=== PATIENT | female | born 1950 | race Caucasian/White ===

== ENCOUNTER → 2018-07-13 | Outpatient (CLI) | payer OTHER, MEDICARE | LOC: FIMAGING 12:55 | PROVIDERS: ATTEND Orthopaedic Surgery | DX: Z01.818 Encounter for other preprocedural examination (principal); M17.12 Unilateral primary osteoarthritis, left knee; M25.462 Effusion, left knee ==

== ENCOUNTER 2018-08-11 07:15 | Inpatient (IN) | payer OTHER, MEDICARE ==
[2018-08-18] MEDS ORDERED: TRANEXAMIC ACID 3,000 MG in NS (SYRINGE) 50 ML IRR ONE (06:00)
[2018-08-18] MEDS ORDERED: ROPIVACAINE 0.2% 80 MG, EPINEPHrine 0.2 MG, KETOROLAC TROMETHAMINE 30 MG in SYRINGE 0 ML IU ONE (06:00)
--- NOTE | 2018-08-18 07:05 | PDHPUP ---
History & Physical Update H&P update statement: This history and physical update is based on an assessment of the patient which was completed after admission or registration (within 24 hours), but prior to the surgery/procedure. H&P update: H&P reviewed & patient examined, no change in patient's condition since H&P completed
[2018-08-18] MEDS ORDERED: TRANEXAMIC ACID 3,000 MG/50 ML BAG IRR ONE (07:38)
[2018-08-18] MEDS ORDERED: VANCOMYCIN 1 GM VIAL ONE (08:43)
[2018-08-18] MEDS ORDERED: ACETAMINOPHEN 325 MG TAB PO ONE (09:13)
[2018-08-18] MEDS ORDERED: FAMOTIDINE 20 MG TAB PO ONE (09:13)
[2018-08-18] MEDS ORDERED: DEXAMETHASONE 4 MG/ML VIAL IVP ONE (09:13)
[2018-08-18] MEDS ORDERED: ceFAZolin 2 GM/DEXTROSE 100 ML IV ONE (09:13)
[2018-08-18] MEDS ORDERED: LR 1,000 ML IV ONE (09:14)
[2018-08-18] MEDS ORDERED: MIDAZOLAM 2 MG/2 ML VIAL ONE (09:51)
[2018-08-18] MEDS ORDERED: BUPIVACAINE 0.25% 30 ML SDV ONE (09:52)
[2018-08-18] MEDS ORDERED: PROPOFOL/EMULSION 500 MG/50 ML BOTTLE IV ONE ×2 (09:53→10:45)
[2018-08-18] MEDS ORDERED: LIDOCAINE 2% 5 ML SDV ONE (09:54)
[2018-08-18] MEDS ORDERED: MIDAZOLAM 2 MG/2 ML VIAL IVP ONE (10:08)
[2018-08-18] MEDS ORDERED: fentaNYL 100 MCG/2 ML INJ IVP PRN (10:09)
[2018-08-18] MEDS ORDERED: ONDANSETRON 4 MG/2 ML VIAL IVP PRN ×2 (10:09→10:44)
[2018-08-18] MEDS ORDERED: oxyCODONE IR 5 MG TAB PO PRN (10:09)
[2018-08-18] MEDS ORDERED: ACETAMINOPHEN 500 MG TAB PO PRN (10:09)
[2018-08-18] MEDS ORDERED: HYDROmorphONE/DILAUDID 2 MG/ML INJ IVP PRN (10:09)
[2018-08-18] MEDS ORDERED: NALOXONE HCL 0.4 MG/ML INJ IVP PRN (10:09)
[2018-08-18] MEDS ORDERED: LR 500 ML IV PRN (10:09)
[2018-08-18] MEDS ORDERED: DEXAMETHASONE 4 MG/ML VIAL IVP PRN (10:09)
--- NOTE | 2018-08-18 10:10 | PDANEPAE ---
ANE History of Present Illness Left Knee TKA ANE Past Medical History - Cardiovascular History Hx Hypertension: Yes Hx Arrhythmias: Yes Hx Chest Pain: No Hx Coronary Artery / Peripheral Vascular Disease: No Hx CHF / Valvular Disease: Yes Hx Palpitations: No Cardiovascular History Comment: PSVT. ? LEAKY MITRAL VALVE - Pulmonary History Hx COPD: No Hx Asthma/Reactive Airway Disease: No Hx Recent Upper Respiratory Infection: No Hx Oxygen in Use at Home: No Hx Sleep Apnea: Yes Sleep Apnea Screening Result - Last Documented: Positive Pulmonary History Comment: MAYNOR uses CPAP - Neurologic History Hx Cerebrovascular Accident: No Hx Seizures: No Hx Dementia: No - Endocrine History Hx Diabetes: No - Renal History Hx Renal Disorders: No - Liver History Hx Hepatic Disorders: No - Neurological & Psychiatric Hx Hx Neurological and Psychiatric Disorders: Yes Neurological / Psychiatric History Comment: depression/anxiety - Cancer History Hx Cancer: No - Congenital Disorder History Hx Congenital Disorders: No - GI History Hx Gastrointestinal Disorders: Yes Gastrointestinal History Comment: intermittent gerd - Other Health History Other Health History: 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 colonoscopies 2 yrs ANE Review of Systems Review of Systems: - Exercise capacity METS (RN): 4 METS ANE Patient History - Allergies Allergies/Adverse Reactions: bacitracin Allergy (Verified 07/12/18 14:17) Rash neomycin [From Neosporin ([id number])] Allergy (Verified 07/12/18 14:17) Rash polymyxin B [From Neosporin ([id number])] Allergy (Verified 07/12/18 14:17) Rash Sulfa (Sulfonamide Antibiotics) Allergy (Verified 07/12/18 14:17) Vomiting sulfamethoxazole [From Bactrim] Allergy (Verified 07/12/18 14:17) Vomiting trimethoprim [From Bactrim] Allergy (Verified 07/12/18 14:17) Vomiting - Home Medications Home Medications: Aspirin [Aspirin 81mg (*)] 81 mg PO DAILY 07/12/18 [Last Taken 3 Weeks Ago ~] Citalopram [CeleXA 20 MG] 20 mg PO DAILY 07/12/18 [Last Taken 08/18/18] Fluticasone Propionate [Aller-Korey] 1 spray NS DAILY 07/12/18 [Last Taken ] Herbals/Supplements -Info Only 1 ea PO DAILY 07/12/18 [Last Taken 3 Weeks Ago ~ 07/28/18] Levothyroxine [Synthroid 50 mcg (*)] 50 mcg PO DAILY06 07/12/18 [Last Taken ] Olmesartan Medoxomil 40 mg PO DAILY 07/12/18 [Last Taken 08/18/18] Spironolactone [Aldactone 25 MG (*)] 25 mg PO DAILY 07/12/18 [Last Taken ] - NPO status NPO Since - Liquids (Date): 08/18/18 NPO Since - Liquids (Time): 07:30 NPO Since - Solids (Date): 08/17/18 NPO Since - Solids (Time): 19:00 - Smoking Hx Smoking Status: Former smoker - Family Anes Hx Family Hx Anesthesia Complications: none ANE Labs/Vital Signs - Vital Signs Blood Pressure: 145/82 Heart Rate: 58 Respiratory Rate: 16 O2 Sat (%): 96 Height: 165.1 cm Weight: 95.254 kg ANE Physical Exam - Airway Neck exam: FROM Mallampati Score: Class 2 - Pulmonary Pulmonary: clear to auscultation - Cardiovascular Cardiovascular: regular rate and rhythym - ASA Status ASA Status: II ANE Anesthesia Plan Anesthesia Plan: spinal Regional Anesthesia: adductor canal FNB
[2018-08-18] MEDS ORDERED: ROPIVACAINE HCL 100 MG/20 ML INJ ONE (10:18)
[2018-08-18] MEDS ORDERED: fentaNYL 100 MCG/2 ML INJ ONE (10:19)
[2018-08-18] MEDS ORDERED: diphenhydrAMINE 25 MG CAP PO PRN (10:44)
[2018-08-18] MEDS ORDERED: POLYETHYLENE GLYCOL 3350 17 GM PKT PO PRN (10:44)
[2018-08-18] MEDS ORDERED: PROMETHAZINE HCL 25 MG SUPPR PR PRN (10:44)
[2018-08-18] MEDS ORDERED: TEMAZEPAM 15 MG CAP PO PRN (10:44)
[2018-08-18] MEDS ORDERED: MAGNESIUM HYDROXIDE 30 ML UDCUP PO PRN (10:44)
[2018-08-18] MEDS ORDERED: BISACODYL 10 MG SUPP PR PRN (10:44)
[2018-08-18] MEDS ORDERED: ONDANSETRON DISINTEGRATING 4 MG TAB PO PRN (10:44)
[2018-08-18] MEDS ORDERED: LACTULOSE 20 GM/30 ML UDCUP PO PRN (10:44)
[2018-08-18] MEDS ORDERED: METOCLOPRAMIDE 10 MG/2 ML VIAL IVP PRN (10:44)
[2018-08-18] MEDS ORDERED: DIPHENOXYLATE/ATROPINE LOMOTIL 1 TAB PO PRN (10:44)
[2018-08-18] MEDS ORDERED: CYCLOBENZAPRINE 10 MG TAB PO PRN (10:44)
[2018-08-18] MEDS ORDERED: PROMETHAZINE HCL 25 MG/ML INJ IVP PRN (10:44)
[2018-08-18] MEDS ORDERED: LR 1,000 ML IV SCH (11:00)
[2018-08-18] MEDS ORDERED: ePHEDrine SULFATE 25 MG/5 ML SYR ONE (11:03)
[2018-08-18] MEDS: oxyCODONE IR 5 MG TAB PO PRN ×3 (15:15→23:30)
[2018-08-18] MEDS ORDERED: oxyCODONE IR 5 MG TAB ONE (15:20)
[2018-08-18] MEDS: ACETAMINOPHEN 325 MG TAB PO SCH ×2 (15:30→23:30)
[2018-08-18] MEDS ORDERED: ACETAMINOPHEN 325 MG TAB ONE (16:08)
[2018-08-18] MEDS: ceFAZolin 2 GM/DEXTROSE 100 ML IV SCH (18:00)
[2018-08-18] MEDS: FAMOTIDINE 20 MG TAB PO SCH (20:52)
[2018-08-18] MEDS: SENNOSIDES/DOCUSATE SODIUM TAB PO SCH (20:52)
[2018-08-18] MEDS: ASPIRIN 81 MG CHEWABLE TAB PO SCH (20:52)
--- NOTE | 2018-08-18 20:55 | POSTANESTH ---
Post Anesthetic Evaluation Cardiovascular Status: Normal, Stable Respiratory Status: Normal, Stable Level of Consciousness/Mental Status: Can Participate in Eval, Alert and Oriented Pain Control: Adequate, Prn Tx Ordered Nausea/Vomiting Control: Adequate, Prn Tx Ordered Complications Possibly Related to Anesthesia: None Noted
--- NOTE | 2018-08-18 21:42 | PDMN ---
Medical Necessity Medical necessity: Pt meets IP criteria per PA; est los >2 mn s/p L TKA (cpt 82456); recommend IP due to hx of multiple allergies, concern for pain medication tolerance & pain management; per order 08/18/18
[2018-08-19] MEDS: ceFAZolin 2 GM/DEXTROSE 100 ML IV SCH (01:42)
[2018-08-19] MEDS: ACETAMINOPHEN 325 MG TAB PO SCH (04:36)
[2018-08-19] MEDS ORDERED: LEVOTHYROXINE 50 MCG TAB PO SCH (06:00)
[2018-08-19] MEDS: oxyCODONE IR 5 MG TAB PO PRN ×2 (06:09→10:25)
[2018-08-19 08:06] VITALS: BP 152/78
[2018-08-19] MEDS: ASPIRIN 81 MG CHEWABLE TAB PO SCH (08:42)
[2018-08-19] MEDS: SENNOSIDES/DOCUSATE SODIUM TAB PO SCH (08:42)
[2018-08-19] MEDS: FAMOTIDINE 20 MG TAB PO SCH (08:43)
[2018-08-19] MEDS ORDERED: SPIRONOLACTONE 25 MG TAB PO SCH (09:00)
[2018-08-19] MEDS ORDERED: OLMESARTAN MEDOXOMIL 20 MG TAB PO SCH (09:00)
[2018-08-19] MEDS ORDERED: CITALOPRAM 20 MG TAB PO SCH (09:00)
[2018-08-19] MEDS ORDERED: FLUTICASONE PROPIONATE EACHNARE SCH (09:00)
--- NOTE | 2018-08-19 09:47 | SOAPPROG ---
SOAP Progress Note Assessment/Plan: Assessment: Patient is doing well POD 1 s/p L TKA Pain management: pain is well controlled on oral pain meds. VTE ppx: recommend aspirin 81 mg BID for 4 weeks, cont FAIZA and SCDs Anemia: level is expected initially postop. Asymptomatic. Continue to monitor D/c planning: Patient has done better than anticipated and would like to be discharged to home today. Patient must be released from PT before discharge to home. Plan: 08/19/18 09:46 Subjective: patient is doing well today, denies SOB, chest pain and N/V Objective: Vital Signs Temp Pulse Resp BP Pulse Ox 36.6 C 62 14 152/78 H 94 08/19/18 08:00 08/19/18 08:00 08/19/18 08:00 08/19/18 08:42 08/19/18 08:00 Laboratory Results 08/19/18 04:34 08/18/18 08/19/18 08/20/18 05:59 05:59 05:59 Intake Total 1400 Balance 1400 LLE; incision dressing is clean and dry, NVI, +pf/df ICD10 Worksheet Patient Problems: Problems Problem Status Onset Primary localized osteoarthritis of left knee Acute
--- NOTE | 2018-08-19 09:59 | ASMTLACE ---
JOSH Length of stay for Answers: 2 days current admission Acuity / Level of Answers: Yes Care: Did the patient have an inpatient admission? Comorbidities - select Answers: Congestive heart failure all that apply Opioid dependence / Chronic pain Other Notes: HTN # of Emergency department Answers: 0 visits in the last 6 months Social determinants Answers: Mental health diagnosis (anxiety, depression, pers onality disorders, etc.) Score: 15 Date Signed: 08/19/2018 09:59 AM Electronically Signed By:KAVITHA Juarez
--- NOTE | 2018-08-19 11:15 | GDS ---
[f rep st] DISCHARGE SUMMARY ADMISSION DIAGNOSIS: Left knee osteoarthritis. DISCHARGE DIAGNOSIS: Left knee osteoarthritis. PROCEDURE: Left total knee arthroplasty. VTE PROPHYLAXIS: Recommend aspirin 81 mg twice daily for 4 weeks. BRIEF DESCRIPTION OF HOSPITAL STAY: Patient was admitted for an elective joint arthroplasty. The pa tient tolerated the procedure well and has passed physical therapy. The patient was given appropriat e antibiotic prophylaxis and venous thromboembolism prophylaxis. The patient's pain was well control led on oral pain medication, patient was holding down food, and had urinated. Decision was made to d ischarge the patient. The patient was given post-operative prescriptions pre-operatively. PLAN: To follow up as scheduled with Dr. Hunt's office September 09. /[id number]/MODL
--- NOTE | 2018-08-22 14:21 | GOP ---
[f rep st] OPERATIVE REPORT DATE OF OPERATION: 08/18/2018 SURGEON: Sade Hunt MD ONLINE BANKING SPECIALIST: 1. Christin Hunt PA-C. 2. Karen Reid PA-C. ANESTHESIA: Spinal. PREOPERATIVE DIAGNOSIS: Left knee osteoarthritis. POSTOPERATIVE DIAGNOSIS: Left knee osteoarthritis. PROCEDURE PERFORMED: Left total knee arthroplasty. FINDINGS: Severe tricompartmental osteoarthritis. ESTIMATED BLOOD LOSS: 30 mL. INDICATIONS: This is a 68-year-old female with severe and progressive pain and deformity of the left knee unresponsive to conservative care. Risks and benefits of the surgical intervention were explai [place]odak in detail. DESCRIPTION OF PROCEDURE: The patient was brought to the operative room and placed on the table in t he supine position. Spinal anesthesia was induced without difficulty. A pneumatic tourniquet was ap plied about the left proximal thigh, and the leg was prepped and draped in a sterile fashion. The le g mathis was applied. After exsanguination by elevation the tourniquet was inflated to 250 mm of jarrod cury. Incision was made anterior medial from the tibial tuberosity to a point 2 cm proximal to the superior pole of the patella. Medial parapatellar arthrotomy was carried out from the superior pole of the p atella and posteriorly in line with the fibers of the Type 2 VMO. The medial collateral ligament was elevated and the infrapatellar fat pad was resected. The patella was everted and the articular surface was excised. A 32 mm patellar button was placed. T he distal femoral guide hole was drilled and the 6 degree alignment christina was placed. A 10 mm distal f emoral cut was made without difficulty. Attention was turned to the tibia and a standard 9 mm cut based on the lateral tibial condyle was per formed. The tibial articular surface was excised without difficulty. Attention was turned back to the femur and a size 5 Journey II femoral cutting block was positioned. Anterior, posterior, and chamfer cuts were made, followed by the intercondylar box cut. The knee was extended and the remnants of the medial and lateral meniscus were excised. The posterio r capsule was injected with ropivacaine, epinephrine and Toradol. A size 4 Journey tibial tray was p ositioned. Trial reduction was then carried out. There was excellent range of motion, alignment, an d stability using the 9 mm polyethylene. All trials were then removed. The joint was thoroughly irrigated and carefully dried. Two packages of cement and 2 grams of vancomycin were mixed in the vacuum mixer and placed on the fixation surface s of all surfaces of the components. The components were implanted and all excess cement was thoroug hly removed. The permanent 9 mm polyethylene was placed without difficulty. The tourniquet was deflated and all bleeders were coagulated. The wound was thoroughly irrigated and closed using interrupted sutures of 2-0 Vicryl for the joint capsule. The subcu was closed with 3-0 Vicryl and the skin with 4-0 Monocryl. Dermabond and Steri-Strips were applied followed by a compre ssive dressing. The patient was then moved from the operating room to the recovery room in good cond ition, having tolerated the procedure well. /[id number]/MODL
== END 2018-08-19 10:35 | disposition home or self-care (01) | DRG 470 ==
LOC: F3N 08-18 09:03 → OBSVTOIN 08-18 10:47 → F3N 08-18 13:23
PROVIDERS: ADMIT Orthopaedic Surgery; ATTEND Orthopaedic Surgery
PROC: 0SRD0J9 Replacement of Left Knee Joint with Synthetic Substitute, Cemented, Open Approach (ICD-10-PCS; principal; 2018-08-18 11:00)
DX: M17.12 Unilateral primary osteoarthritis, left knee (principal); I10 Essential (primary) hypertension; G47.33 Obstructive sleep apnea (adult) (pediatric); F41.8 Other specified anxiety disorders; K21.9 Gastro-esophageal reflux disease without esophagitis; Z96.643 Presence of artificial hip joint, bilateral
CPT/HCPCS: 97110-GP; 97116-GP; 97161-GP; C1713; J0171; J0690; J1100; J1885; J2250; J2704; J2795; J3010; J3370